=== PATIENT | male | born 1985 | race Two or more races ===

== ENCOUNTER 2020-01-17 08:41 | Outpatient (CLI) | payer OTHER ==
[2020-01-21] MEDS ORDERED: COZAAR100 MG PO (11:37)
[2020-01-21] MEDS ORDERED: NORVASC5 MG PO (11:37)
== END 2020-01-17 09:28 | disposition home or self-care (01) ==
LOC: LAB 08:41
DX: K80.00 Calculus of gallbladder with acute cholecystitis without obstruction (principal); R10.84 Generalized abdominal pain

== ENCOUNTER 2020-01-28 06:05 | Day surgery (SDC) | payer OTHER ==
[~2020-01-28 06:05] MED LIST: COZAAR100 MG PO; NORVASC5 MG PO
== END 2020-01-28 17:40 | disposition home or self-care (01) ==
LOC: CIR.AMB 06:05
DX: K80.10 Calculus of gallbladder with chronic cholecystitis without obstruction (principal); K43.0 Incisional hernia with obstruction, without gangrene